=== PATIENT | female | born 1960 | race Caucasian/White ===

== ENCOUNTER 2017-04-26 16:31 | Emergency (ER) | payer OTHER ==
[~2017-04-26] VITALS: Ht 157.5 cm; Wt 77.0 kg
[~2017-04-26 16:31] MED LIST: ALENDRONATE5 MG; AMBIEN5 MG; ARTHROTEC 50 OR; BACTRIM DS1 TAB PO; CIPRO500 MG OR; GABAPENTIN100 MG PO; METOPROL TAR25 MG PO; NEURONTIN300 MG OR; PYRIDIUM200 MG OR; PYRIDIUM200 MG PO; SEROQUEL100 MG PO; TRAZODONE HCL100 MG PO; VYBRID PO; WELLBUTRIN SR150 MG PO
[2017-04-26] MEDS ORDERED: EC-NAPROSYN500 MG PO (16:58)
[2017-04-26] MEDS ORDERED: WELLBUTRIN SR150 MG PO (17:03)
[2017-04-26] MEDS ORDERED: FLEXERIL PO (17:04)
[2017-04-26] MEDS ORDERED: ULTRAM50 MG PO (17:08)
[2017-04-26] MEDS ORDERED: VENLAFAXINE150 M1 PO (17:09)
[2017-04-26] MEDS ORDERED: LORAZEPAM0.5 MG PO (17:09)
[2017-04-26 18:00] VITALS: BP 130/78
[2017-04-26] MEDS ORDERED: LORTAB 5/3255 MG PO (18:01)
== END 2017-04-26 18:05 | disposition home or self-care (01) | DRG 563 ==
LOC: ED 16:31
DX: S92.341A Displaced fracture of fourth metatarsal bone, right foot, initial encounter for closed fracture (principal); F32.9 Major depressive disorder, single episode, unspecified; F41.9 Anxiety disorder, unspecified; M79.7 Fibromyalgia; Y92.009 Unspecified place in unspecified non-institutional (private) residence as the place of occurrence of the external cause; X50.1XXA Overexertion from prolonged static or awkward postures, initial encounter

== ENCOUNTER 2018-04-09 12:53 | Emergency (ER) | payer OTHER ==
[~2018-04-09] VITALS: Ht 157.5 cm; Wt 70.0 kg
[~2018-04-09 12:53] MED LIST changes: +EC-NAPROSYN500 MG PO; +FLEXERIL PO; +LORAZEPAM0.5 MG PO; +LORTAB 5/3255 MG PO; +ULTRAM50 MG PO; +VENLAFAXINE150 M1 PO
[2018-04-09] MEDS ORDERED: DOXYCYC MONO100 M2 PO (13:13)
[2018-04-09] MEDS ORDERED: CHERATUSSIN PO (13:13)
[2018-04-09] MEDS ORDERED: TESSALON PER100 MG PO (13:13)
[2018-04-09] MEDS ORDERED: PROAIR HFA108 MCG/AC PO (13:17)
[2018-04-09 13:40] VITALS: BP 125/90
== END 2018-04-09 13:40 | disposition home or self-care (01) | DRG 153 ==
LOC: ED 12:53
DX: J06.9 Acute upper respiratory infection, unspecified (principal); R05 Cough; R50.9 Fever, unspecified; R09.81 Nasal congestion; R51 Headache; H92.09 Otalgia, unspecified ear

== ENCOUNTER 2020-03-07 09:22 | Emergency (ER) | payer OTHER ==
[~2020-03-07] VITALS: Ht 157.5 cm; Wt 80.0 kg
[~2020-03-07 09:22] MED LIST changes: +CHERATUSSIN PO; +DOXYCYC MONO100 M2 PO; +PROAIR HFA108 MCG/AC PO; +TESSALON PER100 MG PO
[2020-03-07] MEDS ORDERED: GABAPENTIN100 MG PO (09:45)
[2020-03-07] MEDS ORDERED: VITAMIN D22000 UNIT PO (09:46)
[2020-03-07 10:04] LABS: HEMATOCRIT 38.2 % (37.0-47.0); HEMOGLOBIN 11.4 g/dl (12.0-16.0); IMMATURE GRANULOCYTES 0.2 % (0.0-5.0); MEAN CELL VOLUME 84.9 fL CALC (80.0-100.0); MEAN CORPUSCULAR HGB 25.3 pG CALC (26.0-32.0); MEAN CORPUSCULAR HGB CONC 29.8 g/dL CAL (32.0-36.0); NEUT# 4.22 thou/uL (2.00-7.15); RED BLOOD COUNT 4.5 mill/uL (4.20-5.60); RED CELL DISTRI WIDTH 16.4 % (11.5-15.5)
[2020-03-07 10:16] LABS: ALBUMIN 3.9 g/dL (3.2-5.0); ALKALINE PHOSPHATASE 111 u/l (38-126); ANION GAP 12 (6-22 (CALC)); BILIRUBIN, TOTAL 0.5 mg/dL (0.0-1.4); BUN 8 mg/dL (7-17); BUN/CREATININE RATIO 13 (12-20 (CALC)); CARBON DIOXIDE 27 mmol/l (22-30); CHLORIDE 103 mmol/l (95-108); CREATININE 0.6 mg/dL (0.5-1.0); GFR > 60 ML/MIN (>=60 (CALC)); GFR FOR AFR.AMER. > 60 ML/MIN (>=60 (CALC)); POTASSIUM 3.6 mmol/l (3.5-5.1); SGOT/AST 33 u/l (14-36); SODIUM 138 mmol/l (137-146)
[2020-03-07] MEDS ORDERED: FIORICET PO (10:29)
[2020-03-07 10:39] VITALS: BP 149/75
== END 2020-03-07 10:45 | disposition home or self-care (01) | DRG 103 ==
LOC: ED 09:22
PROVIDERS: Emergency Medicine
DX: R51.9 Headache, unspecified (principal); I10 Essential (primary) hypertension; G43.909 Migraine, unspecified, not intractable, without status migrainosus; F41.9 Anxiety disorder, unspecified; F32.9 Major depressive disorder, single episode, unspecified; M79.7 Fibromyalgia

== ENCOUNTER 2020-05-08 09:38 | Emergency (ER) | payer OTHER ==
[~2020-05-08] VITALS: Ht 157.5 cm; Wt 75.0 kg
[~2020-05-08 09:38] MED LIST changes: +FIORICET PO; +VITAMIN D22000 UNIT PO
[2020-05-08 10:55] LABS: HEMOGLOBIN 12.5 g/dl (12.0-16.0); IMMATURE GRANULOCYTES 0.3 % (0.0-5.0); MEAN CELL VOLUME 84.9 fL CALC (80.0-100.0); MEAN CORPUSCULAR HGB 25.9 pG CALC (26.0-32.0); MEAN CORPUSCULAR HGB CONC 30.5 g/dL CAL (32.0-36.0); NEUT# 5.08 thou/uL (2.00-7.15); RED BLOOD COUNT 4.83 mill/uL (4.20-5.60); RED CELL DISTRI WIDTH 16.8 % (11.5-15.5)
[2020-05-08 11:19] LABS: ALBUMIN 3.9 g/dL (3.2-5.0); ALKALINE PHOSPHATASE 68 u/l (38-126); ANION GAP 11 (6-22 (CALC)); BILIRUBIN, TOTAL 0.7 mg/dL (0.0-1.4); BUN 11 mg/dL (7-17); BUN/CREATININE RATIO 19 (12-20 (CALC)); CARBON DIOXIDE 27 mmol/l (22-30); CHLORIDE 105 mmol/l (95-108); CREATININE 0.5 mg/dL (0.5-1.0); GFR > 60 ML/MIN (>=60 (CALC)); GFR FOR AFR.AMER. > 60 ML/MIN (>=60 (CALC)); POTASSIUM 4.1 mmol/l (3.5-5.1); SGOT/AST 24 u/l (14-36); SODIUM 139 mmol/l (137-146)
[2020-05-08] MEDS ORDERED: HYCODAN1 ML PO (12:10)
[2020-05-08] MEDS ORDERED: DECADRON4 MG PO (12:10)
[2020-05-08] MEDS ORDERED: VENTOLIN HFA IN (12:10)
[2020-05-08 12:14] VITALS: BP 171/99
== END 2020-05-08 12:26 | disposition home or self-care (01) | DRG 177 ==
LOC: ED 09:38
PROVIDERS: Student in an Organized Health Care Education/Training Program
DX: U07.1 COVID-19 (principal); J12.82 Pneumonia due to coronavirus disease 2019; F41.9 Anxiety disorder, unspecified; F32.9 Major depressive disorder, single episode, unspecified
CPT/HCPCS: Q9967

== ENCOUNTER 2021-05-29 17:27 | Emergency (ER) | payer OTHER ==
[~2021-05-29] VITALS: Ht 157.5 cm; Wt 70.0 kg
[~2021-05-29 17:27] MED LIST changes: +DECADRON4 MG PO; +HYCODAN1 ML PO; +VENTOLIN HFA IN
[2021-05-29] MEDS ORDERED: AMOXICILLIN500 MG PO (19:24)
[2021-05-29 19:45] VITALS: BP 187/88
[2021-05-29] MEDS ORDERED: OLMESARTAN MEDOX5 MG PO (22:08)
[2021-05-29] MEDS ORDERED: MONTELUKAST SOD10 MG PO (22:27)
[2021-05-29] MEDS ORDERED: ADULT ASPIRIN R81 MG PO (22:28)
[2021-05-29] MEDS ORDERED: FAMOTIDINE MAXI20 MG PO (22:29)
[2021-05-29] MEDS ORDERED: DULERA 50-5 MCG1 AER IN (22:29)
[2021-05-29] MEDS ORDERED: LEVOTHYROXIN50 MCG PO (22:30)
== END 2021-05-29 19:51 | disposition home or self-care (01) | DRG 159 ==
LOC: ED 17:27
DX: K04.7 Periapical abscess without sinus (principal); M79.7 Fibromyalgia; F32.A Depression, unspecified; F41.9 Anxiety disorder, unspecified

== ENCOUNTER 2022-09-19 10:26 | Emergency (ER) | payer BC ==
[2022-09-19] VITALS (7 sets, daily range): BP systolic 156–171; BP diastolic 67–95
[~2022-09-19] VITALS: Ht 157.5 cm; Wt 66.6 kg
[~2022-09-19 10:26] MED LIST changes: +ADULT ASPIRIN R81 MG PO; +AMOXICILLIN500 MG PO; +DULERA 50-5 MCG1 AER IN; +FAMOTIDINE MAXI20 MG PO; +LEVOTHYROXIN50 MCG PO; +MONTELUKAST SOD10 MG PO; +OLMESARTAN MEDOX5 MG PO
[2022-09-19] MEDS ORDERED: OLMESARTAN MEDO20 MG PO (11:03)
[2022-09-19] MEDS ORDERED: DOXY-CAPS100 MG PO (11:56)
[2022-09-19] MEDS ORDERED: CHERATUSSIN PO (12:00)
== END 2022-09-19 12:12 | disposition home or self-care (01) | DRG 153 ==
LOC: ED 10:26
DX: J06.9 Acute upper respiratory infection, unspecified (principal); F32.A Depression, unspecified; F41.9 Anxiety disorder, unspecified; M79.7 Fibromyalgia; Z20.822 Contact with and (suspected) exposure to COVID-19

== ENCOUNTER 2022-09-20 18:01 | Observation (INO) | payer BC ==
[~2022-09-20] VITALS: Ht 157.5 cm; Wt 66.0 kg
[~2022-09-20 18:01] MED LIST changes: +DOXY-CAPS100 MG PO; +OLMESARTAN MEDO20 MG PO
[2022-09-20 18:09] VITALS: BP 147/81
[2022-09-20 18:30] VITALS: BP 154/79
[2022-09-20 18:58] LABS: BASO% 0.4 % (0-3); EOS% 2.9 % (0-8); IMMATURE GRANULOCYTES 0.2 % (0.0-5.0); LYMPH% 32.8 % (15-41); MEAN CELL VOLUME 83.1 fL CALC (80.0-100.0); MEAN CORPUSCULAR HGB 24.8 pG CALC (26.0-32.0); MEAN CORPUSCULAR HGB CONC 29.8 g/dL CAL (32.0-36.0); MONO% 10.3 % (2-13); NEUT% 53.4 % (42-76); RED BLOOD COUNT 4.2 mill/uL (4.20-5.60); RED CELL DISTRI WIDTH 15.6 % (11.5-15.5)
[2022-09-20 18:59] LABS: HEMATOCRIT 34.9 % (37.0-47.0); HEMOGLOBIN 10.4 g/dl (12.0-16.0)
[2022-09-20 19:00] VITALS: BP 157/75
[2022-09-20 19:11] LABS: ALKALINE PHOSPHATASE 94 u/l (38-126); ANION GAP 12 (6-22 (CALC)); BUN 17 mg/dL (7-17); BUN/CREATININE RATIO 19 (12-20 (CALC)); CARBON DIOXIDE 28 mmol/l (22-30); CHLORIDE 102 mmol/l (95-108); CREATININE 0.9 mg/dL (0.5-1.0); GFR FOR AFR.AMER. > 60 ML/MIN (>=60 (CALC)); GFR OTHER RACES > 60 ML/MIN (>=60 (CALC)); POTASSIUM 4.1 mmol/l (3.5-5.1); SODIUM 137 mmol/l (137-146); TOTAL PROTEIN 7.3 g/dL (6.3-8.2)
[2022-09-20 19:13] LABS: BILIRUBIN, TOTAL 0.2 mg/dL (0.02-1.3); SGOT/AST 44 u/l (14-36)
[2022-09-20 20:00] VITALS: BP 150/75
[2022-09-20 20:42] LABS: URINE BILIRUBIN - DIPSTICK NEGATIVE (NEGATIVE); URINE BLOOD DIPSTICK TRACE-LYSED (NEGATIVE); URINE COLOR YELLOW; URINE GLUCOSE - DIPSTICK NEGATIVE (NEGATIVE); URINE KETONE NEGATIVE (NEGATIVE); URINE LEUK ESTERASE NEGATIVE (NEGATIVE); URINE PROTEIN - DIPSTICK TRACE mg/dL (NEG-TRACE); URINE UROBILINOGEN - DIPSTICK 0.2 E.U./dL (0.2)
[2022-09-20 20:44] LABS: URINE NITRITE - DIPSTICK NEGATIVE (Negative)
[2022-09-20 23:22] VITALS: BP 175/99
[2022-09-21 00:36] VITALS: BP 152/87
[2022-09-21 03:59] VITALS: BP 174/90
[2022-09-21 06:48] VITALS: BP 149/81
[2022-09-21 14:55] VITALS: BP 148/76
[2022-09-21 20:45] VITALS: BP 145/63
[2022-09-22 00:24] VITALS: BP 129/73
[2022-09-22 05:19] VITALS: BP 137/77
[2022-09-22 05:59] LABS: HEMATOCRIT 30.9 % (37.0-47.0); HEMOGLOBIN 9.5 g/dl (12.0-16.0); LYMPH% 21.8 % (15-41); MEAN CELL VOLUME 81.5 fL CALC (80.0-100.0); MEAN CORPUSCULAR HGB 25.1 pG CALC (26.0-32.0); MEAN CORPUSCULAR HGB CONC 30.7 g/dL CAL (32.0-36.0); MONO% 4.4 % (2-13); NEUT# 3.35 thou/uL (2.00-7.15); NEUT% 73.8 % (42-76); RED BLOOD COUNT 3.79 mill/uL (4.20-5.60); RED CELL DISTRI WIDTH 15.7 % (11.5-15.5)
[2022-09-22 06:13] LABS: ALBUMIN 3.6 g/dL (3.2-5.0); ALKALINE PHOSPHATASE 74 u/l (38-126); ANION GAP 8 (6-22 (CALC)); BUN 13 mg/dL (7-17); BUN/CREATININE RATIO 23 (12-20 (CALC)); CARBON DIOXIDE 29 mmol/l (22-30); CHLORIDE 104 mmol/l (95-108); CREATININE 0.6 mg/dL (0.5-1.0); GFR FOR AFR.AMER. > 60 ML/MIN (>=60 (CALC)); GFR OTHER RACES > 60 ML/MIN (>=60 (CALC)); MAGNESIUM 2.1 mg/dL (1.6-2.3); SGOT/AST 34 u/l (14-36); SODIUM 138 mmol/l (137-146); TOTAL PROTEIN 6.6 g/dL (6.3-8.2)
[2022-09-22 07:28] VITALS: BP 143/70
[2022-09-22 07:40] VITALS: BP 143/70
== END 2022-09-22 12:51 | disposition home or self-care (01) | DRG 203 ==
LOC: ED 18:01 → MS2 22:19
PROVIDERS: Family Medicine; Nurse Practitioner Family; ADMIT Internal Medicine; ATTEND Internal Medicine
DX: J20.4 Acute bronchitis due to parainfluenza virus (principal); R09.02 Hypoxemia; I10 Essential (primary) hypertension; E89.0 Postprocedural hypothyroidism; F32.A Depression, unspecified; F41.9 Anxiety disorder, unspecified; M79.7 Fibromyalgia; Z20.822 Contact with and (suspected) exposure to COVID-19
CPT/HCPCS: G0378; J1650

== ENCOUNTER 2024-01-13 05:19 | Emergency (ER) | payer BC ==
[~2024-01-13] VITALS: Ht 157.5 cm; Wt 70.0 kg
[2024-01-13] VITALS (10 sets, daily range): BP systolic 150–201; BP diastolic 81–99
[2024-01-13] MEDS ORDERED: cloNIDine HCL 0.1 MG/TAB PO ONE (06:05)
[2024-01-13] MEDS ORDERED: LOSARTAN Potassium 50 MG/TAB PO ONE (06:05)
[2024-01-13 06:35] LABS: URINE BILIRUBIN - DIPSTICK Negative (NEGATIVE); URINE BLOOD DIPSTICK Trace-intact (NEGATIVE); URINE GLUCOSE - DIPSTICK Negative (NEGATIVE); URINE KETONE Negative (NEGATIVE); URINE LEUK ESTERASE Negative (NEGATIVE); URINE NITRITE - DIPSTICK Negative (Negative); URINE PROTEIN - DIPSTICK Negative (NEG-TRACE); URINE UROBILINOGEN - DIPSTICK 0.2 E.U./dL (0.2)
[2024-01-13 06:38] LABS: URINE COLOR Yellow
[2024-01-13 06:46] LABS: BASO% 0.3 % (0-3); EOS% 3.4 % (0-8); IMMATURE GRANULOCYTES 0.3 % (0.0-5.0); LYMPH% 34.8 % (15-41); MEAN CORPUSCULAR HGB 29.7 pG CALC (26.0-32.0); NEUT# 3.02 thou/uL (2.00-7.15); NEUT% 52.2 % (42-76); RED BLOOD COUNT 3.9 mill/uL (4.20-5.60); RED CELL DISTRI WIDTH 15.6 % (11.5-15.5)
[2024-01-13 06:49] LABS: HEMATOCRIT 37.4 % (37.0-47.0); HEMOGLOBIN 11.6 g/dl (12.0-16.0); MEAN CELL VOLUME 95.9 fL CALC (80.0-100.0)
[2024-01-13 06:54] LABS: ALBUMIN 4.3 g/dL (3.2-5.0); ALKALINE PHOSPHATASE 106 u/l (38-126); ANION GAP 12 (6-22 (CALC)); BUN 16 mg/dL (8-23); BUN/CREATININE RATIO 25 (12-20 (CALC)); CARBON DIOXIDE 27 mmol/l (22-30); CHLORIDE 105 mmol/l (95-108); CREATININE 0.7 mg/dL (0.5-1.0); ESTIMATED GFR 98 ML/MIN (>=90 (CALC)); POTASSIUM 3.3 mmol/l (3.5-5.1); SGOT/AST 44 u/l (9-36); SODIUM 139 mmol/l (137-146); TOTAL PROTEIN 7.7 g/dL (6.3-8.2)
[2024-01-13 06:56] LABS: ACT PARTIAL THROMBO TIME 24.3 SECONDS (20.0-32.5)
[2024-01-13 07:00] LABS: D-DIMER 0.5 mg/L (0.19-0.60)
[2024-01-13 07:01] LABS: BILIRUBIN, TOTAL 0.4 mg/dL (0.02-1.3); PROTHROMBIN TIME 9.1 SECONDS (9.0-12.5)
[2024-01-13] MEDS ORDERED: POTASSIUM CHLORIDE 10 MEQ/TAB PO ONE (07:20)
[2024-01-13] MEDS ORDERED: BACTRIM DS1 TAB PO (07:37)
[2024-01-13] MEDS ORDERED: COZAAR100 MG PO (08:00)
== END 2024-01-13 08:20 | disposition home or self-care (01) | DRG 305 ==
LOC: ED 05:19
PROVIDERS: Family Medicine
DX: I10 Essential (primary) hypertension (principal); T46.5X6A Underdosing of other antihypertensive drugs, initial encounter; Z91.128 Patient's intentional underdosing of medication regimen for other reason; F41.9 Anxiety disorder, unspecified; F32.A Depression, unspecified